=== PATIENT | female | born 1945 | race Caucasian/White ===

== ENCOUNTER 2025-04-14 19:01 | Emergency (ER) | payer MEDICARE, BC, SELFPAY ==
--- OUTSIDE RECORDS SUMMARY | 2025-04-14 19:03 | XMS_ITS | Clinical Summary ---
Author Organization [facility] Health Address [address] [place] [address] Care Team Providers Care Computer Operations Supervisor Name Role Phone Unavailable Primary Care Provider Unavailabl e Social History Tobacco Use Types Packs/Day Years Used Date Smoking Tobacco: Never Assessed Comments Unknown Sex and Gender Information Value Date Recorded Sex Assigned at Not on file Legal Sex Female 3:36 PM PST Gender Identity Not on file Sexual Orientation Not on file Plan of Treatment Not on file
--- OUTSIDE RECORDS SUMMARY | 2025-04-14 19:04 | XMS_ITS | Encounter Summary ---
Author Organization [facility] Health Address [address] [place] [address] Care Team Providers Care Gas Operations Superintendent Name Role Phone Unavailable Primary Care Provider Unavailabl e Prior Encounters Date Type Department Care Team Description 11/11/2019 Converted 13x [facility] [address] [place] [address] <No scans attached> 11/11/2019 Converted CPS Chart Documents [facility] [address] [place] [address] <No scans attached> Plan of Treatment Not on file Procedures Procedure Name Priority Date/Time Associated Diagnosis Comments INTRAORAL PHOTO Routine 09/19/2013 1:00 AM MST INTRAORAL PHOTO Routine 09/19/2013 1:00 AM MST INTRAORAL PHOTO Routine 09/19/2013 1:00 AM MST INTRAORAL PHOTO Routine 09/19/2013 1:00 AM MST COMPREHENSIVE ORAL EVALUATION - NEW OR ESTABLISHED PATIENT Routine 11/29/2012 1:00 AM MST 29 CROWN - FULL CAST HIGH VERGARA METAL Routine 11/27/2012 1:00 AM MST 19 CROWN - FULL CAST HIGH VERGARA METAL Routine 11/27/2012 1:00 AM MST 18 MODBL AMALGAM 4+ SURFACE Routine 11/27/2012 1:00 AM MST 19 ENDODONTIC THERAPY, MOLAR TOOTH (EXCLUDING FINAL JAIN) Routine 11/27/2012 1:00 AM MST 20 CROWN PFM POST Routine 11/27/2012 1:0 0 AM MST 1 FM IRR W/GROSS SCALE Routine 3 1:00 AM MST TOPICAL APPLICATION OF FLUORIDE VARNISH Routine 11/27/2012 1:00 AM MST PROPHYLAXIS - ADULT Routine 11/27/2012 1 :00 AM MST ORAL HYGIENE INSTRUCTIONS Routine 2012 1:00 AM MST ADDITIONAL X-RAY Routine 01/31/2012 12:0 0 AM MST SINGLE X-RAY Routine 01/31/2012 12:00 AM MST 14 ENDODONTIC THERAPY, PREMOLAR TOOTH (EXCLUDING FINAL JAIN) Routine 12/08/2011 1:00 AM MST 11 ENDODONTIC THERAPY, PREMOLAR TOOTH (EXCLUDING FINAL JAIN) Routine 12/08/2011 1:00 AM MST 9 ENDODONTIC THERAPY, PREMOLAR TOOTH (EXCLUDING FINAL JAIN) Routine 12/08/2011 1:00 AM MST 7 ENDODONTIC THERAPY, PREMOLAR TOOTH (EXCLUDING FINAL JAIN) Routine 12/08/2011 1:00 AM MST 4 ENDODONTIC THERAPY, PREMOLAR TOOTH (EXCLUDING FINAL JAIN) Routine 12/08/2011 1:00 AM MST 15 CROWN PFM POST Routine 12/08/2011 1:0 0 AM MST 14 CROWN PFM POST Routine 12/08/2011 1:0 0 AM MST 13 CROWN PFM POST Routine 12/08/2011 1:0 0 AM MST 12 CROWN PFM POST Routine 12/08/2011 1:0 0 AM MST 11 CROWN PFM POST Routine 12/08/2011 1:0 0 AM MST 10 CROWN PFM POST Routine 12/08/2011 1:0 0 AM MST 9 CROWN PFM POST Routine 12/08/2011 1:00 AM MST 8 CROWN PFM POST Routine 12/08/2011 1:00 AM MST 7 CROWN PFM POST Routine 12/08/2011 1:00 AM MST 6 CROWN PFM POST Routine 12/08/2011 1:00 AM MST 5 CROWN PFM POST Routine 12/08/2011 1:00 AM MST 4 CROWN PFM POST Routine 12/08/2011 1:00 AM MST 7 PONTIC - PFM - POST Routine 12/08/2011 1:00 AM MST 8 RETAINER CROWN - PFM - POST Routine 12/08/2011 1:00 AM MST 6 RETAINER CROWN - PFM - POST Routine 12/08/2011 1:00 AM MST 8 CORE BUILDUP, INCLUDING ANY PINS WHEN REQUIRED Routine 12/08/2011 1:00 AM MST 6 CORE BUILDUP, INCLUDING ANY PINS WHEN REQUIRED Routine 12/08/2011 1:00 AM MST 7 BONE REPLACEMENT GRAFT RETAINED NATURAL TOOTH FIRST SITE IN QUADRANT Routine 12/08/2011 1:00 AM MST 7 GUIDED TISSUE REGENERATION, NATURAL TEETH - RESORBABLE BARRIER, PER SITE Routine 12/08/2011 1:00 AM MST 7 REMOVAL OF RESIDUAL TOOTH ROOTS (CUTTING PROCEDURE) Routine 12/08/2011 1:00 AM MST 7 LIMITED ORAL EVALUATION - PROBLEM FOCUSED Routine 12/08/2011 1:00 AM [facility] PANORAMIC RADIOGRAPHIC IMAGE Routine 12/08/2011 1:00 AM [facility] ADDITIONAL X-RAY Routine 12/08/2011 1:00 AM [facility] ADDITIONAL X-RAY Routine 12/08/2011 1:00 AM [facility] SINGLE X-RAY Routine 12/08/2011 1:00 AM [facility] INTRAORAL PHOTO Routine 12/08/2011 1:00 AM [facility] INTRAORAL PHOTO Routine 12/08/2011 1:00 AM [facility] Visit Diagnoses Not on file
--- OUTSIDE RECORDS SUMMARY | 2025-04-14 19:04 | XMS_ITS | Clinical Summary ---
Author Organization [facility] Address [facility] [place] [address] Care Team Providers Care Bridge Maintainer Name Role Phone Votel, Chris Carpio MD Primary Care Provider + Allergies No known active allergies Medications galantamine (RAZADYNE) 8 mg tabletIndications:S evere dementia without behavioral disturbance, psychotic disturbance, mood disturbance, or anxiety, unspecified dementia type (HC) Take 1 Tablet (8 mg) by mouth two times daily with meals. 180 Tablet 3 4 Active metoprolol succinate (TOPROL XL) 100 mg Sustained-Release tabletIndications:E ssential hypertension Take 1 Tablet (100 mg) by mouth once daily. Scored tablet can be divided. 90 Tablet 3 4 Active simvastatin (ZOCOR) 40 mg tabletIndications:H yperlipidemia, unspecified hyperlipidemia type Take 1 Tablet (40 mg) by mouth at bedtime. Dose increase 07/19/21 90 Tablet 3 4 Active levothyroxine (SYNTHROID) 75 mcg tabletIndications:O ther specified hypothyroidism Take 1 Tablet (75 mcg) by mouth before breakfast. 90 Tablet 3 4 Active escitalopram oxalate (LEXAPRO) 10 mg tabletIndications:D epression, recurrent Take 1 Tablet (10 mg) by mouth once daily in the morning. 30 Tablet 5 Active hydroCHLOROthiazide 12.5 mg tabletIndications:E ssential hypertension Take 1 Tablet (12.5 mg) by mouth once daily. 90 Tablet 2 5 Active Active Problems Problem Noted Date Diagnosed Date Severe dementia without beha vioral disturbance, psychotic disturbance, mood disturbance, or anxiety 11/01/2023 Depression, recurrent 10/19/2023 ACP (advance care planning) 07/29/2015 Overview (07/29/2015): Has discussed Hyperplastic colon polyp 06/10/2010 Overview (06/10/2010): Colonoscopy 05/2010 polyp repeat in 10 years Dysthymia 03/17/2009 Migraine, unspecified, witho ut mention of intractable migraine without mention of status migrainosus Unspecified essential hypertension Unspecified hypothyroidism Other and unspecified hyperlipidemia Resolved Problems Problem Noted Date Diagnosed Date Resolved Date Rash and other nonspecific skin eruption 07/25/2012 07/30/2020 Routine general medical exam ination at a health care facility 03/19/2009 10/26/2018 Overview (07/21/2011): dexa normal in 1999 and 2004, 2010 stable. No need to repeat. Desiree Salas M.D. 07/21/2011 7:07 PM Encounters Date Type Department Care Team Description 01/15/2025 12:50 PM CDT Office Visit [facility] [address] [place] [address] Chris Lee MD Follow Up (BP and thyroid); Derm Problem (Red circular spot on left forearm, non itchy, x 3 days) 01/15/2025 Travel from Last 3 Months Immunizations Immunization Administration Dates Next Due COVID-19 VACCINE SPIKEVAX (M ODERNA 50MCG/0.5ML) 12YO+ PFS 02/13/2024,07/19/2023 COVID-19 vaccine (LibertadCard-Bio NTech 30mcg/0.3mL) 12YO+ BIVALENT PF, MDV 08/01/2022 COVID-19 vaccine (LibertadCard-Bio NTech 30mcg/0.3mL) PF, MDV 01/13/2021,12/23/2020 Hepatitis A (Adult) 01/08/2008,07/09/2007 Influenza, High-dose Inactivated 08/02/2016,04/2015,08/13/2014 Influenza, IIV3 (Age 6-35 mos) 07/18/2011,2009 Influenza, IIV3 (Age >=3 years) 08/06/20 13,07/25/2012,07/18/2011,08/28,08/22/2007,08/30/2006 Influenza, IIV4 06/19/2024,08/06/2019 Influenza, Inactivated AIIV4 (Age 65+ Years) Preserv Free 07/18/2023,08/01/2022,07/16/2021,07/30 Influenza, Inactivated IIV3 (Age 65+ Years) Preserv Free 10/26/2018,08/08/2017 Pneumococcal Poly,23-Valent (Pneumovax) 07/18/2011 Pneumococcal conj 13-Valent (Prevnar 13) 07/29/2015 RSV, Recombinant ADJ Reconst ituted (Arexvy 120MCG/0.5mL) 10/19/2023 Td (Age >=7 Years) 06/19/1997 Td, Preservative Free (age >= 7 Years) 7 Tdap 01/31/2007 Zoster (Shingrix-RZV, recombinant) 06/29/2022, Zoster (Zostavax-ZVL, live) 03/17/2009 Family History Medical History Relation Name Comments Heart Disease Father Cancer-colon Maternal Aunt Cancer-colon Maternal Uncle Stroke Mother Psychiatric illness Son depressi on Cancer-breast No Family History Relation Name Status Comments Father (Age 44) after open heart surgery Maternal Aunt Maternal Uncle Mother (Age 86) stroke Son Social History Tobacco Use Types Packs/Day Years Used Date Smoking Tobacco: Never Smokeless Tobacco: Never Tobacco Cessation:Counseling Given: Yes Alcohol Use Standard Drinks/Week Comments Not Currently 0 (1 standard drink = 0.6 oz pur e alcohol) occas PHQ-2 Answer Date Recorded PHQ-2 TOTAL SCORE 5 11/12/2024 Social Connections Answer Date Recorded Do you often feel lonely or isolated from those around you? 0 07/11/2024 Financial Resource Strain Answer Date R ecorded Difficulty of Paying Living Expenses 3 07/11/2024 Difficulty of Paying Living Expenses Not on file 07/11/2024 Food Insecurity Answer Date Recorded Do you worry your food will run out before you are able to buy more? 1 07/11/2024 Transportation Needs Answer Date Record ed Does lack of transportation keep you from medica l appointments? 1 07/11/2024 Does lack of transportation keep you from work, meetings or getting things that you need? 1 07/11/2024 Housing Stability Answer Date Recorded What is your housing situation today? 1 07/11/2024 Utilities Answer Date Recorded Do you have trouble paying f or utilities (for example, heat, electricity, water, phone)? 1 07/11/2024 Comments No Sex and Gender Information Value Date Recorded Sex Assigned at Not on file Legal Sex Female 5:27 AM PECAN CLEANER Gender Identity Not on file Sexual Orientation Not on file Obstetrics History Last Filed Vital Signs Vital Sign Reading Time Taken Comments Blood Pressure 117/72 01/15/2025 12:51 PM CDT Pulse 61 01/15/2025 12:51 PM CDT Temperature 36.7 C (98 F) 11/12/2024 1:31 PM PECAN CLEANER Respiratory Rate - - Oxygen Saturation 97% 01/15/2025 12:51 PM CDT Inhaled Oxygen Concentration - - Weight 65.5 kg (144 lb 6.4 oz) 01/15/2025 12:51 PM CDT Height 149.9 cm (4' 11) 01/15/2025 12:51 PM CDT Body Mass Index 29.17 01/15/2025 12:51 PM CDT Plan of Treatment Upcoming Encounters Date Type Department Care Team (Late st Contact Info) Description 04/18/2025 3:05 PM CDT Office Visit [facility] [address] [place] [address] Flory Del Rio MD [address] [place] [address] 07/30/2025 1:40 PM CDT Office Visit [facility] [address] [place] [address] Chris Lee MD [address] [place] [address] Health Maintenance Due Date Last Done Comments COVID-19 vaccine series (2023- season) 2025 07/05/2024, 02/13/2024, 07/19/2023, Additional history exists Depression screening for age 12+ 11/12/2025 11/12/2024, 11/12/2024, 10/10/2024, Additional history exists Medicare Wellness for age 65+ 11/13/2025 11/12/2024, 10/19/2023, 07/30/2020, Additional history exists BMI (ht and wt on same day) for age 18+ 01/15/2026 01/15/2025, 11/12/2024, 10/10/2024, Additional history exists Tetanus booster 08/08/2027 08/08/2017, 01/21, 06/19/1997 Tdap Completed 01/31/2007 DEXA/DXA scan for age 65+ Completed 07/19/2011 Pneumococcal series for age 50+ Completed 07/29/2015, 07/18/2011 Zoster (shingles) series for age 50+ Completed 06/29/2022, 04/28/2022, 03/17/2009 RSV vaccine for adults or Completed 10/19/2023 Influenza Vaccine Completed 06/19/2024, , 08/01/2022, Additional history exists Hepatitis B series for 19+ Aged Out N o longer eligible based on patient's age to complete this topic Procedures Procedure Name Priority Date/Time Associated Diagnosis Comments TSH Routine 01/15/2025 1:20 PM CDT Other specified hypothyroidism XR DXA BONE DENSITY 2 SITES AXIAL Routine 07/19/2011 10:48 AM CDT Special screening for osteoporosis from Last 3 Months or Most Recently Relevant to Health Maintenance Results * (ABNORMAL) TSH (01/15/2025 1:20 PM CDT) TSH 0.12(L) 0.40 - 4.50 mIU/L [facility] Blood BLOOD SPECIMEN / Unknown 01/15/2025 1:20 PM CDT 01/15/2025 1:21 PM CDT Chris Lee MD CHEMISTRY Final Re sult [facility] [address] [place] [address], [place] [phone] [facility] [address] [place] [address] * XR DEXA BONE DENSITY 2 SITES [70696.1] (07/19/2011 10:48 AM CDT) Anatomical Region Laterality Modality Spine, HIPS, HIPL, HIPR Other Narrative 07/21/2011 1:24 PM CDT Please see scanned document for results of this study. Procedure Note Mela Tello - 07/21/2011 Please see scanned document for results of this study. Desiree Salas DEXA Final R esult from Last 3 Months or Most Recently Relevant to Health Maintenance Insurance [employer] [place] [employer] [place] ONLY Care Teams Bridge Maintainer Relationship Specialty Start Date End Date ClydeteChris machuca MD [address] [place] [address] PCP - General Family Practice 10/19/23
[2025-04-14 19:15] VITALS: BP 148/72; PULSE 65; RESP 18; TEMP 36.7; O2SAT 98; BMI 30.1
--- NOTE | 2025-04-14 19:18 | ED.UPPEXIN ---
HPI - Extremity Injury (Upper) General Time Seen by Provider: 19:21 Date Seen: 04/14/25 Chief Complaint: Extremity Pain/Injury, Upper Stated Complaint: Fell, hurt RT bicep Time Seen by Provider: 04/14/25 19:17 Source: patient and family Mode of arrival: ambulatory Limitations: other (Dementia) History of Present Illness HPI narrative: 79-year-old female who comes in today with arm injury, she does have a history of hypertension and dementia. She apparently fell a couple days ago, tripped on a curb and injured her right arm. Brought in today as family just found out about this today. Patient is unable to provide much history, history is from son and spouse. Related Data Home Medications ?Medication ?Instructions ?Recorded ?Confirmed aspirin 81 mg capsule 81 mg PO QDAY 11/24/22 11/24/22 Previous Rx's ?Medication ?Instructions ?Recorded escitalopram oxalate 5 mg tablet 5 mg PO DAILY 90 days #90 tabs 03/27/23 hydrochlorothiazide 25 mg tablet 25 mg PO DAILY 90 days #90 tabs 03/27/23 levothyroxine 100 mcg tablet 100 mcg PO DAILY 90 days #90 tabs 03/27/23 metoprolol succinate 100 mg 100 mg PO DAILY 90 days #90 tabs 03/27/23 tablet,extended release 24 hr simvastatin 40 mg tablet 40 mg PO QPM 90 days #90 tabs 03/27/23 Allergies Allergy/AdvReac Type Severity Reaction Status Date / Time No Known Drug Allergies Allergy Verified 11/24/22 13:39 PFSH PFSH Surgical History (Updated 11/24/22 @ 13:14 by Arabella Tian ~ PSR) History of hysterectomy ?Z90.710 - Acquired absence of both cervix and uterus (ICD-10) History of colonoscopy ?Z98.890 - Other specified postprocedural states (ICD-10) Family History (Updated 11/24/22 @ 13:19 by Arabella Tian ~ PSR) Brother Dementia Depression Father Depression Sister Depression Grandfather Depression Social History (Updated 11/24/22 @ 13:45 by Jaquelin Blank, FRONT END DRIVER, HOTEL RECEPTIONIST) Narrative: Daughter in car accident age 29. , lives with her in [place]. Retired. Exam Narrative: Exam Narrative: General: well nourished , NAD Head: Atraumatic and normocephalic ENT: External ears and external nose are normal Eyes: Conjunctiva clear, pupils are equal reactive, external ocular motions are intact Neck: Full spontaneous range of motion of the neck Lungs: No respiratory distress Musculoskeletal: Tenderness of the right mid biceps. Distal tendon intact, no chest wall tenderness or bruising, question slightly increased bulk a biceps on the right. Swelling of the right hand, patient has 2 rings on, no evidence for strangulation Neurologic: No gross focal neurologic deficits Skin: No rashes Psych: Mood and affect are appropriate Const: Vital Signs, click to edit/add: Vital Signs - 24 hr 04/14/25 19:15 Temperature 98.0 F Pulse Rate [Pulse Oximeter] 65 Respiratory Rate 18 Blood Pressure [Le ft Upper Arm] 148/72 H Pulse Oximetry 98 Oxygen Delivery Me thod Room Air Course Course ED Course: Reviewed most recent primary care visit from December 2024 which was follow-up for blood pressure check and thyroid check, that time was on hydrochlorothiazide, metoprolol, Synthroid and blood pressure well controlled. Patient presents today with right arm injury 2 days ago, pain today. On exam, patient is pleasantly demented and unable to answer many questions. She has some mild tenderness the right bicep on exam, no deformity of the humerus. Muscle bulk is slightly decreased on the right but does not seem to be punched and there is no bruising or tenderness of the right shoulder upper chest, the distal biceps tendon is intact as well. Likely muscle strain, consider tendon rupture. Fracture less likely but x-rays ordered to evaluate. Did discuss with family that patient has a partial biceps tendon rupture, she would not be a candidate for repair. There is some mild swelling of the right hand which likely is dependent due to positioning. Reevaluation(s) Time of Reevaluation #1: 19:56 Reevaluation #1: X-ray independently interpreted by me demonstrates no humeral fracture but a normal joint space in the shoulder concerning for possible dislocation, shoulder x-ray ordered. Time of Reevaluation #2: 20:36 Reevaluation #2: Reviewed radiology interpretation of shoulder x-ray which is negative for acute fracture or dislocation. Patient will be placed in a sling for comfort, follow-up with primary care and consider physical therapy. Vital Signs Vital signs: Initial Vital Signs Temperature 98.0 F 04/14/25 19:15 Temperature Source Temporal Artery Scan 04/14/25 19:15 Pulse Rate 65 04/14/25 19:15 Respiratory Rate 18 04/14/25 19:15 Blood Pressure 148/72 H 04/14/25 19:15 Blood Pressure Mean 97 04/14/25 19:15 Blood Pressure Position Sitting 04/14/25 19:15 Pulse Oximetry 98 04/14/25 19:15 Oxygen Delivery Method Room Air 04/14/25 19:15 Vital Signs Temperature 98.0 F 04/14/25 19:15 Pulse Rate 65 04/14/25 19:15 Respiratory Rate 18 04/14/25 19:15 Blood Pressure 148/72 H 04/14/25 19:15 Pulse Oximetry 98 04/14/25 19:15 Oxygen Delivery Method Room Air 04/14/25 19:15 Temperature 98.0 F 04/14/25 19:15 Pulse Rate 65 04/14/25 19:15 Respiratory Rate 18 04/14/25 19:15 Blood Pressure 148/72 H 04/14/25 19:15 Pulse Oximetry 98 04/14/25 19:15 Oxygen Delivery Method Room Air 04/14/25 19:15 Discharge Plan Discharge Clinical Impression: Strain of right biceps Patient Disposition: Home w/ Parent or Adult Condition: Stable Instructions: Muscle Strain (ED) Additional Instructions: Tylenol as needed for pain Follow-up with primary care in 1 week for consideration for physical therapy Wear sling for comfort for the next couple of days, take the sling off several times a day to move the shoulder Activity Level: Activity as Tolerated Discharge Diet: Regular Prescriptions: No Action aspirin 81 mg capsule 81 mg PO QDAY escitalopram oxalate 5 mg tablet 5 mg PO DAILY 90 Days Qty: 90 2RF metoprolol succinate 100 mg tablet extended release 24 hr 100 mg PO DAILY 90 Days Qty: 90 2RF hydrochlorothiazide 25 mg tablet 25 mg PO DAILY 90 Days Qty: 90 2RF levothyroxine 100 mcg tablet 100 mcg PO DAILY 90 Days Qty: 90 2RF simvastatin 40 mg tablet 40 mg PO QPM 90 Days Qty: 90 3RF Follow Up/Referrals: Jaquelin Blank, FRONT END DRIVER, HOTEL RECEPTIONIST [Primary Care Provider, Family Practice] Stand Alone Forms: MyHealth Info Instructions
--- NOTE | 2025-04-14 19:28 | CRLHL7_ITS ---
For Patients: As a result of the Century Cures Act, medical imaging exams and procedure reports are released immediately into your electronic medical record. You may view this report before your referring provider. If you have questions, please contact your health care provider. Indication: Trauma. Technique: Right humerus, 2 views. Comparison: None. Findings/Impression: Bones: Mild inferior subluxation of the humerus, possibly related to technique and positioning. Consider dedicated shoulder radiographs if there is concern for dislocation. Otherwise, no displaced fractures or bone lesions. Chronic changes about the greater tuberosity. Joint spaces: Moderate acromioclavicular degenerative changes. Soft tissues: Unremarkable. Dictated by Carlito Franklin MD @ 04/14/2025 7:56:08 PM (Electronically Signed)
--- NOTE | 2025-04-14 19:57 | CRLHL7_ITS ---
For Patients: As a result of the Cures Act, medical imaging exams and procedure reports are released immediately into your electronic medical record. You may view this report before your referring provider. If you have questions, please contact your health care provider. Indication: Trauma. Technique: Right shoulder, 3 views. Comparison: None. Findings/Impression: Bones: Alignment is normal. No displaced fractures or bone lesions. Chronic changes about the greater tuberosity. Joint spaces: Moderate acromioclavicular and mild glenohumeral joint degenerative changes. Soft tissues: Unremarkable. Dictated by Carlito Franklin MD @ 04/14/2025 8:24:45 PM (Electronically Signed)
== END 2025-04-14 20:49 | disposition home or self-care (01) ==
PROVIDERS: Emergency Provider Family Medicine; PCP Nurse Practitioner Family
DX: S46.211A Strain of muscle, fascia and tendon of other parts of biceps, right arm, initial encounter (principal); I10 Essential (primary) hypertension; F03.90 Unspecified dementia, unspecified severity, without behavioral disturbance, psychotic disturbance, mood disturbance, and anxiety; W19.XXXA Unspecified fall, initial encounter
CPT/HCPCS: 73030; 73060; 99284